=== PATIENT | female | born 1970 | race Hispanic/Latino ===

== ENCOUNTER 2017-04-15 06:38 | Day surgery (SDC) | payer OTHER ==
[2017-04-15 07:05] VITALS: BMI 26.0
[2017-04-15] MEDS ORDERED: ePHEDrine 50 mg/ml Inj ONE (07:08)
[2017-04-15] MEDS ORDERED: Succinylcholine 200 mg/10 ml Inj IV ONE (07:08)
[2017-04-15] MEDS ORDERED: Propofol 10 mg/ml Inj (20 ML) ONE (07:08)
[2017-04-15] MEDS ORDERED: Midazolam 2 MG/2 ML VIAL ONE (07:08)
[2017-04-15] MEDS ORDERED: Rocuronium 10 mg/ml (5 ml) ONE (07:08)
[2017-04-15] MEDS ORDERED: Bupivacaine 0.5% Inj(30mL) ONE (07:30)
[2017-04-15] MEDS ORDERED: Sterile Water 10 ML IV ONE (07:30)
[2017-04-15 07:39] LABS: BASO # 0.1 K/uL (0.0-0.2); BASO % 1.4 % (0.0-2.0); EOS # 0.2 K/uL (0.0-0.7); EOS % 4.8 % (0.0-4.0); HEMATOCRIT 36.8 % (34.0-47.0); LYMPH # 1.7 K/uL (1.0-4.3); LYMPH % 40.3 % (20.0-40.0); MEAN CELL VOLUME 96.7 fl (81.0-99.0); MEAN CORPUSCULAR HEMOGLOBIN 33.3 pg (27.0-31.0); MEAN CORPUSCULAR HGB CONC 34.5 g/dL (33.0-37.0); MEAN PLATELET VOLUME 9.9 fl (7.2-11.7); MONO # 0.3 K/uL (0.0-0.8); MONO % 8.1 % (0.0-10.0); NEUT # 1.9 K/uL (1.8-7.0); NEUT % 45.4 % (50.0-75.0); NRBC % 0.1 % (0.0-0.0); RED CELL DISTRIBUTION WIDTH 13.9 % (11.5-14.5); WHITE BLOOD COUNT 4.2 K/uL (4.8-10.8)
[2017-04-15] MEDS ORDERED: Lactated Ringer's 1,000 ML IV ONE ×2 (08:30→08:40)
[2017-04-15] MEDS ORDERED: Neostigmine Methylsulfate 3mg/3ml Syringe IV ONE (08:48)
[2017-04-15] MEDS ORDERED: Dexamethasone 4 mg/1 ml ONE (08:53)
[2017-04-15] MEDS ORDERED: Neostigmine Methylsulfate 2 MG/2 ML ML IV ONE (09:42)
[2017-04-15] MEDS ORDERED: HYDROmorphone 0.5 mg/0.5 ml ISec IVP PRN (10:07)
[2017-04-15] MEDS ORDERED: Lactated Ringer's 1,000 ML IV SCH (10:07)
[2017-04-15] MEDS ORDERED: Oxycodone/Acetaminophen 5/325 mg Tab PO PRN (10:37)
[2017-04-15 15:16] VITALS: O2SAT 98
[2017-04-15 16:22] VITALS: BP 113/81; PULSE 90; RESP 18; TEMP 97.8
--- NOTE | 2017-04-20 14:21 | OP ---
PROCEDURE DATE: 04/15/2017 SURGEON: Gabriel Arreguin MD DEVELOPMENT TECHNICIAN: CB Myers. PREOPERATIVE DIAGNOSES: Pelvic pain, dysmenorrhea, dyspareunia. POSTOPERATIVE DIAGNOSES: Pelvic pain, dysmenorrhea, dyspareunia, pelvic adhesions and possible endometriosis. PROCEDURE PERFORMED: Diagnostic cystoscopy, diagnostic hysteroscopy, laparoscopy, robotic de Odilia, lysis of adhesion and left ureterolysis. COMPLICATIONS: None. SPECIMENS: Multiple samples of peritoneum sent to pathology. DRAINS: Ling catheter. ESTIMATED BLOOD LOSS: Minimal. COMPLICATIONS: None. DESCRIPTION OF PROCEDURE: After consent was obtained, the patient was brought to the operating room and placed on the operating table in the supine position. Anterior venous catheter was started, antibiotics were administered. After satisfactory anesthesia was induced, the patient was positioned in dorsal lithotomy position. The patient was then placed in a stable cardiac and pulmonary parameter position and all layers prone to pressure were padded. The external genitalia were sterilely prepped and draped in a standard fashion. A timeout was performed. At this point, a cystoscope was inserted into the bladder under direct vision. Bowie cystoscopy was performed and the bladder was inspected and noted to be free of tumor, stones. The hysteroscope was removed and a 16 [place] Ling catheter was placed. Attention was to the hysteroscopy where a speculum was placed in the vagina. The anterior lip of the cervix was grasped. The uterus was gently dilated and a hysteroscope was inserted in the uterine cavity revealing a normal sized cavity with no evidence of polyps, fibroids or adenomyosis. At this point, a uterine manipulator was placed in the uterus and attention was on the abdomen, where an incision was made in the umbilicus with a standard open laparoscopy technique. The abdominal cavity was entered in a blunt fashion and at this point a blunt trocar was inserted and the abdomen was insufflated. After entering abdominal cavity, under direct visualization, 2 additional trocars were inserted in the left lower quadrant and right lower quadrant. At this point, the da Odilia robot was brought into the field. The findings were of presence of thick adhesions between the sigmoid colon and the left pelvic sidewall. Otherwise, the right ovary appeared to be normal. The left ovary also appeared to be normal. At this point, utilizing the robotic daniel and a robotic grasper, the sigmoid colon was progressively lateralized from thick adhesions from the left pelvic side wall. The retroperitoneum was entered and the ureter was identified and progressively lateralized and , so that the sigmoid could be removed medially and this was done in a [id number] fashion. An area of peritoneum containing possibly endometriosis or inflammatory tissue was also excised, thereby freeing the sigmoid from the left pelvic sidewall. After this excision was performed, we checked for hemostasis that appeared to be excellent. The da Odilia robot was undocked. The instruments were removed. The abdomen was desufflated. The peritoneum was closed in layers utilizing PDS for the fascia and Monocryl for the skin. At the end of the procedure, all tapes and instrument counts were correct. The patient tolerated the procedure well and was taken to recovery room in excellent condition. Gabriel Arreguin MD cc: [id number] TT: 04/20/2017 14:20:28 garrick [email or web address]
== END 2017-04-15 16:47 | disposition home or self-care (01) ==
LOC: H.OPSURG 06:38
PROVIDERS: ATTEND Obstetrics & Gynecology Reproductive Endocrinology
DX: N80.0 Endometriosis of uterus (principal); R10.2 Pelvic and perineal pain; J45.909 Unspecified asthma, uncomplicated; N94.6 Dysmenorrhea, unspecified; N94.10 Unspecified dyspareunia; N73.6 Female pelvic peritoneal adhesions (postinfective)